=== PATIENT | female | born 1950 | race Caucasian/White ===

== ENCOUNTER 2018-04-22 21:36 | Inpatient (IN) | payer MEDICARE, OTHER ==
[~2018-04-22] VITALS: Ht 160 cm; Wt 106.5 kg
[~2018-04-22 21:36] MED LIST: ADVIL ALLERGY-1 EACH PO; AZIT250 PO; DIABETIC VITAMINS; FLUO10 PO; GEMF600 PO; GLIP5 PO; GLUC500 PO; GUAI600T33 PO; INSULANPEN SC; LEVSOD150 PO; LISI20 PO; LOVA20 PO; METF500 PO; NAPR500 PO; OMEG1CAP30 PO; OPTIFLEX-C400 MG PO; PROP60 PO; Rocephin 10001000 MG IV; SKIEMOTO TOP; TRIHYD253B PO; Triderm30 GM TP; Ventolin/Prove6.7 GM INH
[2018-04-22 22:28] LABS: BASOPHILS ABSOLUTE AUTO 0.06 K/mm3 (0.00-0.23); BASOPHILS PERCENT AUTO 0 % (0-2); EOSINOPHILS ABSOLUTE AUTO 0.03 K/mm3 (0.00-0.68); EOSINOPHILS PERCENT AUTO 0 % (0-6); Hematocrit 35.2 % (33.0-51.0); Hemoglobin 11.6 g/dL (11.5-16.0); IMMATURE GRAN ABSOLUTE AUTO 0.34 K/mm3 (0.00-0.10); IMMATURE GRAN PERCENT AUTO 2 % (0-1); LYMPHOCYTES ABSOLUTE AUTO 0.72 K/mm3 (0.84-5.20); LYMPHOCYTES PERCENT AUTO 4 % (21-46); MONOCYTES ABSOLUTE AUTO 1.06 K/mm3 (0.16-1.47); MONOCYTES PERCENT AUTO 6 % (4-13); Mean Corpuscular HGB 29.8 pg (26.0-34.0); Mean Corpuscular Volume 91 fL (80-100); NEUTROPHILS ABSOLUTE AUTO 15.27 K/mm3 (1.96-9.15); NEUTROPHILS PERCENT AUTO 87 % (41-73); RDW Coefficient Variation 12.7 % (11.7-14.2); RDW Standard Deviation 41.6 fL (35.1-46.3); Red Blood Cell Count 3.89 M/mm3 (3.80-5.20); White Blood Cell Count 17.48 K/mm3 (4.00-11.30)
[2018-04-22 22:35] LABS: Mean Platelet Volume 11.3 fL (9.1-12.4); Platelet Count 261 K/mm3 (150-400)
[2018-04-22 22:39] LABS: Albumin, Blood 2.8 g/dL (3.4-5.0); Albumin/Globulin Ratio 0.6 (0.8-1.8); Bilirubin, Total 0.6 mg/dL (0.1-1.0); Bun/Creatinine Ratio 21.8 (12.0-20.0); Calcium, Blood 8.9 mg/dL (8.5-10.1); Creatinine, Blood 1.19 mg/dL (0.40-1.00); Globulin, Blood 4.8 g/dL (2.2-4.0); Potassium, Blood 4.1 mmol/L (3.5-5.5); Total Protein, Blood 7.6 g/dL (6.4-8.2)
[2018-04-22 23:03] LABS: Source, Urine Clean Catch
[2018-04-22 23:06] LABS: Bilirubin, Urine Neg (Neg); Blood, Urine 5+ (Neg); Glucose Qualitative, Urine 4+ (Neg); Ketones, Urine Neg (Neg); Leukocyte Esterase, Urine 3+ (Neg); Nitrite, Urine Pos (Neg); Protein, Urine 3+ (Neg); Urobilinogen, Urine NORM (Normal)
[2018-04-22 23:08] LABS: Appearance, Urine Cloudy (Clear); Color, Urine Yellow (P-Yellow)
[2018-04-22 23:20] LABS: Bacteria Many /hpf; Squamous Epithelial Cells Rare /hpf (Few); White Blood Cells, Urine TNTC /hpf (0-5)
[2018-04-22 23:25] LABS: Influenza A Negative (NEGATIVE); Influenza B Negative (NEGATIVE)
[2018-04-23] MEDS ORDERED: LEVSOD50 PO (01:42)
[2018-04-23] MEDS ORDERED: PRIM250 PO (01:43)
[2018-04-23] MEDS ORDERED: METF500C PO (01:44)
[2018-04-23] MEDS ORDERED: GEMF600 PO (01:45)
[2018-04-23] MEDS ORDERED: Omeprazole20 M1 PO (01:46)
[2018-04-23] MEDS ORDERED: Inderal80 MG PO (01:47)
[2018-04-23] MEDS ORDERED: LOSA50 PO (01:48)
[2018-04-23] MEDS ORDERED: PROZAC20 MG PO (01:49)
[2018-04-23] MEDS ORDERED: LOVA40 PO (01:50)
[2018-04-23] MEDS ORDERED: MONT10T PO (01:53)
--- NOTE | 2018-04-23 01:55 | NUR ---
PT ARRIVAL. PT ARRIVED ON UNIT VIA GURNEY, PT WAS ABLE TO SELF TRANSFER FROM [place] TO BED. PT WAS ADMITTED DUE TO SEPSIS AND UTI. PT HAS BEEN WITHOUT POWER SINCE THE SNOW STORM 3-4 DAYS AGO, PT NORMALLY USES CPAP WITH SLEEP BUT HAS NOT BEEN ABLE TO THE LAST FEW DAYS DUE TO NO POWER AT HOME. TELE WAS PLACED, NSR IN THE 80'S PER OIL REFINER. PT'S BP 118/79. NO EDEMA NOTED ON ASSESSMENT. PT L/S CLEAR T/O W/ EXPIRATORY WHEEZES IN THE RIGHT UPPER AND MID LOBES. PT O2 STATS ARE >90% ON RA. BT PRESENT AND HYPOACTIVE, ABD IS SOFT AND NONTENDER TO PALP. PT HAS COMPLAINED OF N/V AND DIARRHEA THE PAST 2-3 DAYS. PT HAS NOT HAD ANY OF THESE COMPLAINTS SINCE ADMIT. CALL LIGHT IN REACH, BED IS LOCKED AND LOW WILL CONTINUE TO MONITOR.
[2018-04-23] MEDS ORDERED: BASAGLAR K100 UNIT/1 SC (01:56)
[2018-04-23 04:00] LABS: Hematocrit 31.6 % (33.0-51.0); Hemoglobin 10.4 g/dL (11.5-16.0); Mean Corpuscular HGB 29.1 pg (26.0-34.0); Mean Corpuscular HGB Conc 32.9 g/dL (31.5-36.5); Mean Corpuscular Volume 89 fL (80-100); Mean Platelet Volume 11.4 fL (9.1-12.4); Platelet Count 285 K/mm3 (150-400); RDW Coefficient Variation 12.6 % (11.7-14.2); Red Blood Cell Count 3.57 M/mm3 (3.80-5.20)
[2018-04-23 04:23] LABS: Albumin, Blood 2.4 g/dL (3.4-5.0); Albumin/Globulin Ratio 0.6 (0.8-1.8); Bilirubin, Total 0.6 mg/dL (0.1-1.0); Bun/Creatinine Ratio 21.8 (12.0-20.0); Calcium, Blood 8.2 mg/dL (8.5-10.1); Creatinine, Blood 1.19 mg/dL (0.40-1.00); Globulin, Blood 4.3 g/dL (2.2-4.0); Potassium, Blood 3.7 mmol/L (3.5-5.5); Total Protein, Blood 6.7 g/dL (6.4-8.2)
--- NOTE | 2018-04-23 06:30 | NUR ---
SHIFT SUMMARY. NO ACUTE CHANGES NOTED THIS SHIFT. PT'S VS HAVE BEEN STABLE T/O SHIFT. PT IS SBA TO THE BATHROOM. AFTER GETTING UP THIS AM PT WALKED BACK TO THE BED AND BEGAN TO SHAKE, PT STATED SHE WAS "VERY COLD AND CAN'T GET WARM." A WARM BLANKET WAS PROVIDED FOR COMFORT, PT'S BLOOD SUGAR WAS CHECKED AND IT WAS 287. PT'S BP AND TEMP WAS STABLE WELL. PT STATED THAT SHE HAS BEEN DOING THIS FOR 3-4 DAYS. CALL LIGHT IN REACH, BED IS LOCKED AND LOW WILL CONTINUE TO MONITOR UNTIL REPORT IS GIVEN TO ONCOMING RN.
[2018-04-23 13:20] LABS: Adenovirus Not Detected (NOT DETECT); Bordetella pertussis Not Detected (NOT DETECT); Chlamydophila pneumoniae Not Detected (NOT DETECT); Coronavirus 229E Not Detected (NOT DETECT); Coronavirus HKU1 Not Detected (NOT DETECT); Coronavirus NL63 Not Detected (NOT DETECT); Coronavirus OC43 Not Detected (NOT DETECT); Human Metapneumovirus Not Detected (NOT DETECT); Human Rhinovirus/Enterovirus Not Detected (NOT DETECT); Influenza A Not Detected (NOT DETECT); Influenza A/2009-H1 Not Detected (NOT DETECT); Influenza A/H1 Not Detected (NOT DETECT); Influenza A/H3 Not Detected (NOT DETECT); Influenza B Not Detected (NOT DETECT); Mycoplasma pneumoniae Not Detected (NOT DETECT); Parainfluenza Virus 1 Not Detected (NOT DETECT); Parainfluenza Virus 2 Not Detected (NOT DETECT); Parainfluenza Virus 3 Not Detected (NOT DETECT); Parainfluenza Virus 4 Not Detected (NOT DETECT); Respiratory Syncytial Virus Not Detected (NOT DETECT)
--- NOTE | 2018-04-23 17:26 | NUR ---
ARRIVED TO ROOM VIA WHEELCHAIR PATIENT TRANSFERRED SELF TO BED, TREMORS OF ARMS WHICH PER PATIENT IS NORMAL FOR HER. PATIENT DENIES PAIN OR NAUSEA. ORIENTED PATIENT TO HER ROOM ND CALL SYSTEM. PATIENT EATING DINNER AT THIS TIME
--- NOTE | 2018-04-24 06:02 | NUR ---
SHIFT SUMMARY PT A&O X4 T/O SHIFT. NO ACUTE CHANGES. DR. PURCELL AWARE BEDTIME PROPRANOLOL HELD D/T LOW BP T/O DAY. BLOOD GLUCOSE MANGED PER ORDERS AND EMAR. PT DENIED PAIN, NAUSEA AND CP T/O SHIFT. INCREASED WOB NOTED WHEN UP TO TOILET; PT STS SLIGHT SOB. RA; DENIES SOB AT REST. IV GTT PER EMAR. PT DENIES CP[facility] WITH 1 DEGREE BLOCK PER TOP CLEANER. CALL LIGHT IN REACH; PT DEMONSTRATES USE. WCTM UNTIL REPORT TO DAY SHIFT RN.
[2018-04-24 07:32] LABS: BASOPHILS ABSOLUTE AUTO 0.04 K/mm3 (0.00-0.23); BASOPHILS PERCENT AUTO 0 % (0-2); EOSINOPHILS PERCENT AUTO 1 % (0-6); Hematocrit 30.6 % (33.0-51.0); Hemoglobin 10.3 g/dL (11.5-16.0); IMMATURE GRAN ABSOLUTE AUTO 0.15 K/mm3 (0.00-0.10); IMMATURE GRAN PERCENT AUTO 2 % (0-1); LYMPHOCYTES ABSOLUTE AUTO 0.82 K/mm3 (0.84-5.20); LYMPHOCYTES PERCENT AUTO 9 % (21-46); MONOCYTES ABSOLUTE AUTO 0.96 K/mm3 (0.16-1.47); MONOCYTES PERCENT AUTO 11 % (4-13); Mean Corpuscular HGB Conc 33.7 g/dL (31.5-36.5); Mean Platelet Volume 11.4 fL (9.1-12.4); NEUTROPHILS ABSOLUTE AUTO 7.03 K/mm3 (1.96-9.15); NEUTROPHILS PERCENT AUTO 77 % (41-73); Platelet Count 227 K/mm3 (150-400); RDW Coefficient Variation 12.9 % (11.7-14.2); RDW Standard Deviation 40.8 fL (35.1-46.3); Red Blood Cell Count 3.55 M/mm3 (3.80-5.20)
[2018-04-24 07:34] LABS: Mean Corpuscular Volume 86 fL (80-100)
[2018-04-24 07:48] LABS: Anion Gap 10 mmol/L (6-16); Blood Urea Nitrogen 27 mg/dL (8-24); Bun/Creatinine Ratio 29.4 (12.0-20.0); CO2, Blood 19 mmol/L (21-32); Calcium, Blood 8.2 mg/dL (8.5-10.1); Chloride, Blood 104 mmol/L (98-108); Creatinine, Blood 0.92 mg/dL (0.40-1.00); Glomerular Filtration Rate >60 (60-); Glucose, Blood 218 mg/dL (70-99); Potassium, Blood 3.9 mmol/L (3.5-5.5); Sodium, Blood 133 mmol/L (136-145)
--- NOTE | 2018-04-24 17:28 | NUR ---
SUMMARY PATIENT DENIES PAIN OR DISCOMFORT THROUGHOUT SHIFT. PATIENT SLIGHTLY SOB WITH ACTIVITY WHICH SHE STATES IS HER BASELINE. VOIDING SLIGHTLY CLOUDY AALIYAH URINE. PATIENT IS HOPING TO DISCHARGE TOMORROW
--- NOTE | 2018-04-25 04:13 | NUR ---
SHIFT SUMMARY PT A&O X4 T/O SHIFT. NO ACUTE CHANGES. RA WHILE AWAKE. CPAP WHILE ASLEEP; CONT. OXIMETRY. PT INDEPENDENT IN ROOM. LS CLEAR; PT DENIES SOB AT REST; STS SLIGHT WHEN OOB. INCREASED WOB WITH ACTIVITY NOTED; PT ABLE TO CONVERSE IN FULL SENTENCES. PAIN MANAGED PER EMAR. CALL LIGHT IN REACH; PT DEMONSTRATES USE. WCTM UNTIL REPORT TO DAY SHIFT RN.
[2018-04-25 05:39] LABS: BASOPHILS ABSOLUTE AUTO 0.06 K/mm3 (0.00-0.23); BASOPHILS PERCENT AUTO 1 % (0-2); EOSINOPHILS ABSOLUTE AUTO 0.24 K/mm3 (0.00-0.68); EOSINOPHILS PERCENT AUTO 3 % (0-6); Hematocrit 32.6 % (33.0-51.0); Hemoglobin 10.7 g/dL (11.5-16.0); IMMATURE GRAN ABSOLUTE AUTO 0.31 K/mm3 (0.00-0.10); IMMATURE GRAN PERCENT AUTO 3 % (0-1); LYMPHOCYTES ABSOLUTE AUTO 1.29 K/mm3 (0.84-5.20); LYMPHOCYTES PERCENT AUTO 14 % (21-46); MONOCYTES ABSOLUTE AUTO 1.23 K/mm3 (0.16-1.47); MONOCYTES PERCENT AUTO 13 % (4-13); Mean Corpuscular HGB 29.2 pg (26.0-34.0); Mean Corpuscular HGB Conc 32.8 g/dL (31.5-36.5); Mean Platelet Volume 11.1 fL (9.1-12.4); NEUTROPHILS ABSOLUTE AUTO 6.27 K/mm3 (1.96-9.15); NEUTROPHILS PERCENT AUTO 67 % (41-73); Platelet Count 279 K/mm3 (150-400); RDW Coefficient Variation 13.2 % (11.7-14.2); RDW Standard Deviation 43.4 fL (35.1-46.3); Red Blood Cell Count 3.67 M/mm3 (3.80-5.20)
[2018-04-25 05:44] LABS: Mean Corpuscular Volume 89 fL (80-100)
[2018-04-25 06:00] LABS: Anion Gap 8 mmol/L (6-16); Blood Urea Nitrogen 21 mg/dL (8-24); Bun/Creatinine Ratio 28.6 (12.0-20.0); CO2, Blood 24 mmol/L (21-32); Calcium, Blood 8.7 mg/dL (8.5-10.1); Chloride, Blood 105 mmol/L (98-108); Creatinine, Blood 0.74 mg/dL (0.40-1.00); Glomerular Filtration Rate >60 (60-); Glucose, Blood 136 mg/dL (70-99); Potassium, Blood 3.9 mmol/L (3.5-5.5); Sodium, Blood 137 mmol/L (136-145)
[2018-04-25] MEDS ORDERED: LEVO750 PO (11:36)
--- NOTE | 2018-04-25 13:35 | NUR ---
DIACHARGE: PT DC TO HOME AT THIS TIME WITH FAMILY. IV DC'D WNL. PT HOME MED RETURNED TO HER. VERBALIZED UNDERSTANDING OF DC INSTRUCTIONS, FOLLOW UP, PROBLEMS TO REPORT AND MEDICATIONS. SCRIPT GIVEN. PT LEFT VIA WHEELCHAIR TO CAR WITH BELONGINGS.
== END 2018-04-25 13:35 | disposition home or self-care (01) | DRG 872 ==
LOC: ER 21:36 → PCU 04-23 00:24 → SURS 04-23 17:17
PROVIDERS: Emergency Medicine; Hospitalist; ADMIT Internal Medicine
DX: A41.51 Sepsis due to Escherichia coli [E. coli] (principal); N39.0 Urinary tract infection, site not specified; E87.1 Hypo-osmolality and hyponatremia; E11.65 Type 2 diabetes mellitus with hyperglycemia; E11.22 Type 2 diabetes mellitus with diabetic chronic kidney disease; E03.9 Hypothyroidism, unspecified; I12.9 Hypertensive chronic kidney disease with stage 1 through stage 4 chronic kidney disease, or unspecified chronic kidney disease; N18.3 Chronic kidney disease, stage 3 (moderate); D63.1 Anemia in chronic kidney disease; E86.0 Dehydration; E78.5 Hyperlipidemia, unspecified; K52.9 Noninfective gastroenteritis and colitis, unspecified; Z79.84 Long term (current) use of oral hypoglycemic drugs; Z79.899 Other long term (current) drug therapy
CPT/HCPCS: 36415; 80048; 80053; 81001; 82947; 83605; 85025; 85027; 87040; 87077; 87086; 87186; 87486; 87581; 87633; 87798; 87804; 90686; 94660; 94762; 96361; 96374; 96375; 99285-25; J0696; J1650; J2405; J7030

== ENCOUNTER → 2018-05-20 | Outpatient (CLI) | payer MEDICARE, OTHER ==
[~2018-05-20] MED LIST changes: +BASAGLAR K100 UNIT/1 SC; +Inderal80 MG PO; +LEVO750 PO; +LEVSOD50 PO; +LOSA50 PO; +LOVA40 PO; +METF500C PO; +MONT10T PO; +Omeprazole20 M1 PO; +PRIM250 PO; +PROZAC20 MG PO
== END | disposition home or self-care (01) ==
LOC: LAB SHORT 18:16 → LAB 18:16
DX: G62.9 Polyneuropathy, unspecified (principal)
CPT/HCPCS: 82607

== ENCOUNTER → 2018-07-15 | Outpatient (CLI) | payer MEDICARE | END | disposition home or self-care (01) | LOC: LAB SHORT 13:39 → LAB 13:39 | DX: N39.0 Urinary tract infection, site not specified (principal) | CPT/HCPCS: 87077; 87086; 87186 ==

== ENCOUNTER → 2018-11-04 | Outpatient (CLI) | payer MEDICARE, OTHER ==
[2018-11-04 19:52] LABS: Free Thyroxine 1.13 ng/dL (0.70-1.60); Thyroid Stimulating Hormone 0.18 uIU/mL (0.360-4.800)
== END | disposition home or self-care (01) ==
LOC: LAB 16:22 → LAB SHORT 16:22
PROVIDERS: Hospitalist
DX: E03.9 Hypothyroidism, unspecified (principal)
CPT/HCPCS: 84439; 84443

== ENCOUNTER → 2019-01-05 | Outpatient (CLI) | payer MEDICARE, OTHER ==
[~2019-01-05] MED LIST changes: +BASAGLAR SC; +BENADRYL25 MG PO; +DIABETIC VITAMINS PO; +FOCUS FACTOR PO; +NAPR220 PO; +SUPER C PO
== END | disposition home or self-care (01) ==
LOC: LAB SHORT 16:13 → LAB 16:13
DX: N39.0 Urinary tract infection, site not specified (principal)
CPT/HCPCS: 87077; 87086; 87186

== ENCOUNTER 2019-01-17 09:26 | Day surgery (SDC) | payer MEDICARE, OTHER ==
[~2019-01-17] VITALS: Ht 160 cm; Wt 102.0 kg
--- NOTE | 2019-01-17 10:26 | NUR ---
Ambulatory in Day Surgery. Surgical site prepped with 2% Chlorhexidine cloth wipe. History, Chart, Medications and Allergies reviewed before start of procedure. Lungs clear T/O to Auscultation. Patient confirms NPO status and agrees with scheduled surgery. Pre-Op teaching done. Pt verbalizes understanding. Patient reports completing Chlorhexadine shower X2 prior to admission to hospital.
--- NOTE | 2019-01-17 15:52 | NUR ---
POST OP: REPORT RECEIVED FROM CRYSTAL GROWER. PT TO UNIT AT 1405. UPON ASSESSMENT, NO VISABLE DISTRESS, VSS, A/O. SURGICAL SITE WNL. WILL CTM
--- NOTE | 2019-01-17 18:20 | NUR ---
SUMMARY: NO ACUTE CHANGE SINCE POST OP. VSS, A/O. UP EASILY, ABLE TO MOVE LEG, DENIES N/T. VOIDED IN COMMODE. DENIES PAIN CURRENTLY. TXA GIVEN. DENIES NAUSEA. SURGICAL SITE WNL. NO SAFETY CONCERNS AT THIS TIME.
--- NOTE | 2019-01-18 04:35 | NUR ---
Pt A&O x4. VSS. Pain controlled with medications. Ambulating in hallway. Voiding. Tolerating PO. CMS to RLE intact. Dressing DCI. Polar Ice on.
[2019-01-18 05:02] LABS: BASOPHILS ABSOLUTE AUTO 0.06 K/mm3 (0.00-0.23); BASOPHILS PERCENT AUTO 0 % (0-2); EOSINOPHILS ABSOLUTE AUTO 0.19 K/mm3 (0.00-0.68); EOSINOPHILS PERCENT AUTO 1 % (0-6); Hematocrit 31.1 % (33.0-51.0); Hemoglobin 10.4 g/dL (11.5-16.0); IMMATURE GRAN ABSOLUTE AUTO 0.08 K/mm3 (0.00-0.10); IMMATURE GRAN PERCENT AUTO 1 % (0-1); LYMPHOCYTES ABSOLUTE AUTO 3.02 K/mm3 (0.84-5.20); LYMPHOCYTES PERCENT AUTO 22 % (21-46); MONOCYTES ABSOLUTE AUTO 1.11 K/mm3 (0.16-1.47); MONOCYTES PERCENT AUTO 8 % (4-13); Mean Corpuscular HGB 29.6 pg (26.0-34.0); Mean Corpuscular HGB Conc 33.4 g/dL (31.5-36.5); Mean Corpuscular Volume 89 fL (80-100); Mean Platelet Volume 10.9 fL (9.1-12.4); NEUTROPHILS ABSOLUTE AUTO 9.38 K/mm3 (1.96-9.15); NEUTROPHILS PERCENT AUTO 68 % (41-73); NRBC ABSOLUTE 0.02 K/mm3 (0.00-0.02); NRBC Auto 0.1 /100 WBC (0.0-0.2); Platelet Count 283 K/mm3 (150-400); RDW Standard Deviation 42.2 fL (35.1-46.3); Red Blood Cell Count 3.51 M/mm3 (3.80-5.20); White Blood Cell Count 13.84 K/mm3 (4.00-11.30)
[2019-01-18 05:23] LABS: Anion Gap 7 mmol/L (6-16); Blood Urea Nitrogen 19 mg/dL (8-24); Bun/Creatinine Ratio 27.9 (12.0-20.0); CO2, Blood 29 mmol/L (21-32); Calcium, Blood 8.5 mg/dL (8.5-10.1); Chloride, Blood 106 mmol/L (98-108); Creatinine, Blood 0.68 mg/dL (0.40-1.00); Glomerular Filtration Rate >60 (60-); Glucose, Blood 146 mg/dL (70-99); Magnesium, Blood 1.7 mg/dL (1.6-2.4); Potassium, Blood 3.4 mmol/L (3.5-5.5); Sodium, Blood 142 mmol/L (136-145)
[2019-01-18] MEDS ORDERED: OXYC5 PO (11:23)
[2019-01-18] MEDS ORDERED: ACET500 PO (11:24)
[2019-01-18] MEDS ORDERED: ASPI81CH PO (11:24)
--- NOTE | 2019-01-18 15:53 | NUR ---
DISCHARGE: PACKET PRINTED AND PT EDUCATED. SCRIPT SENT WITH PT. PT LEFT UNIT VIA WHEELCHAIR WITH LYDIA WEBSTER AT APPROX 1230
== END 2019-01-18 12:30 | disposition home or self-care (01) ==
LOC: ORSCMMR 09:26 → ORD 11:00 → ORSCMMR 11:30 → ORD 11:30 → SURS 14:16 → ORSCMMR 01-18 12:30
PROVIDERS: Orthopaedic Surgery
PROC: 0SRC0J9 Replacement of Right Knee Joint with Synthetic Substitute, Cemented, Open Approach (ICD-10-PCS; principal; 2019-01-17 11:30)
DX: M17.11 Unilateral primary osteoarthritis, right knee (principal); I10 Essential (primary) hypertension; E11.9 Type 2 diabetes mellitus without complications; E03.9 Hypothyroidism, unspecified; E66.01 Morbid (severe) obesity due to excess calories; Z68.39 Body mass index [BMI] 39.0-39.9, adult; E78.5 Hyperlipidemia, unspecified; J45.909 Unspecified asthma, uncomplicated; Z79.899 Other long term (current) drug therapy; Z79.84 Long term (current) use of oral hypoglycemic drugs; Z23 Encounter for immunization
CPT/HCPCS: 36415; 73560-RT; 80048; 82947; 83735; 85025; 88300; 90686; 97110; 97116; 97162; 97530; C1713; C1776; G0008; J0171; J0690; J0735; J1100; J1815; J1885; J2370; J2405; J2704; J2795; J3010; J7120; Q0163

== ENCOUNTER → 2020-01-04 | Outpatient (CLI) | payer MEDICARE, OTHER ==
[~2020-01-04] MED LIST changes: +ACET500 PO; +ASPI81CH PO; +OXYC5 PO
[2020-01-04 19:42] LABS: Percent Saturation 33.2 % (15.0-50.0)
== END ==
LOC: LAB 17:27 → LAB SHORT 17:27
PROVIDERS: Hospitalist
DX: D50.9 Iron deficiency anemia, unspecified (principal)
CPT/HCPCS: 82728; 83540; 83550

== ENCOUNTER → 2020-03-21 | Outpatient (CLI) | payer MEDICARE, OTHER ==
[2020-03-21 18:50] LABS: BASOPHILS ABSOLUTE AUTO 0.11 K/mm3 (0.00-0.23); BASOPHILS PERCENT AUTO 1 % (0-2); EOSINOPHILS ABSOLUTE AUTO 0.43 K/mm3 (0.00-0.68); EOSINOPHILS PERCENT AUTO 5 % (0-6); Hematocrit 38.9 % (33.0-51.0); Hemoglobin 12.8 g/dL (11.5-16.0); IMMATURE GRAN ABSOLUTE AUTO 0.12 K/mm3 (0.00-0.10); IMMATURE GRAN PERCENT AUTO 1 % (0-1); LYMPHOCYTES ABSOLUTE AUTO 2.95 K/mm3 (0.84-5.20); LYMPHOCYTES PERCENT AUTO 31 % (21-46); MONOCYTES ABSOLUTE AUTO 0.76 K/mm3 (0.16-1.47); MONOCYTES PERCENT AUTO 8 % (4-13); Mean Corpuscular HGB 29.2 pg (26.0-34.0); Mean Corpuscular HGB Conc 32.9 g/dL (31.5-36.5); Mean Corpuscular Volume 89 fL (80-100); NEUTROPHILS ABSOLUTE AUTO 5.24 K/mm3 (1.96-9.15); NEUTROPHILS PERCENT AUTO 55 % (41-73); Platelet Count 302 K/mm3 (150-400); RDW Coefficient Variation 12.5 % (11.7-14.2); RDW Standard Deviation 40.7 fL (35.1-46.3); Red Blood Cell Count 4.38 M/mm3 (3.80-5.20); White Blood Cell Count 9.61 K/mm3 (4.00-11.30)
[2020-03-21 20:09] LABS: Free Thyroxine 1.08 ng/dL (0.70-1.60)
[2020-03-21 20:13] LABS: Thyroid Stimulating Hormone 1.6 uIU/mL (0.360-4.800)
== END | disposition home or self-care (01) ==
LOC: LAB SHORT 16:30 → LAB 16:30
PROVIDERS: Hospitalist
DX: E03.9 Hypothyroidism, unspecified (principal); E11.65 Type 2 diabetes mellitus with hyperglycemia; R06.02 Shortness of breath
CPT/HCPCS: 83036; 84439; 84443; 85025

== ENCOUNTER → 2020-10-23 | Outpatient (CLI) | payer MEDICARE, OTHER | LOC: LAB SHORT 11:45 → LAB 11:45 | DX: R30.0 Dysuria (principal); Z88.2 Allergy status to sulfonamides | CPT/HCPCS: 87086 ==

== ENCOUNTER → 2020-12-04 | Outpatient (CLI) | payer MEDICARE, OTHER | END | disposition home or self-care (01) | LOC: LAB SHORT 15:00 | DX: R30.0 Dysuria (principal) | CPT/HCPCS: 87077; 87086; 87186 ==

== ENCOUNTER → 2021-04-01 | Outpatient (CLI) | payer MEDICARE, OTHER ==
[2021-04-01 19:39] LABS: Free Thyroxine 0.98 ng/dL (0.70-1.60)
[2021-04-01 19:42] LABS: Thyroid Stimulating Hormone 2.34 uIU/mL (0.360-4.800)
== END | disposition home or self-care (01) ==
LOC: LAB SHORT 17:00
PROVIDERS: Hospitalist
DX: E03.9 Hypothyroidism, unspecified (principal)
CPT/HCPCS: 84439; 84443; 84481

== ENCOUNTER → 2021-09-25 | Outpatient (CLI) | payer MEDICARE, OTHER | END | disposition home or self-care (01) | LOC: LAB SHORT 12:10 | DX: E11.65 Type 2 diabetes mellitus with hyperglycemia (principal) | CPT/HCPCS: 82043 ==

== ENCOUNTER → 2021-12-25 | Outpatient (CLI) | payer MEDICARE ==
[2021-12-27 16:25] LABS: Adenovirus F 40/41 Not Detected (NOT DETECT); Astrovirus Not Detected (NOT DETECT); Campylobacter Sp Not Detected (NOT DETECT); Cryptosporidium Not Detected (NOT DETECT); Cyclospora Cayetanensis Not Detected (NOT DETECT); E. Coli O157 Not Detected (NOT DETECT); Entamoeba Histolytica Not Detected (NOT DETECT); Enteroaggregative E. coli-EAEC Not Detected (NOT DETECT); Enteropathogenic E. coli-EPEC Not Detected (NOT DETECT); Enterotoxigenic E. coli-ETEC Not Detected (NOT DETECT); Giardia Lamblia Not Detected (NOT DETECT); Norovirus GI/GII Detected (NOT DETECT); Plesiomonas Shigelloides Not Detected (NOT DETECT); Rotavirus A Not Detected (NOT DETECT); Salmonella Sp Not Detected (NOT DETECT); Sapovirus Not Detected (NOT DETECT); Shiga Toxin-prod E. coli-STEC Not Detected (NOT DETECT); Shigella/Enteroin E. coli-EIEC Not Detected (NOT DETECT); Vibrio Cholerae Not Detected (NOT DETECT); Vibrio Sp Not Detected (NOT DETECT); Yersinia Enterocolitica Not Detected (NOT DETECT)
== END | disposition home or self-care (01) ==
LOC: LAB 12:22 → LAB SHORT 12:22
PROVIDERS: Hospitalist
DX: R19.7 Diarrhea, unspecified (principal)
CPT/HCPCS: 87507

== ENCOUNTER → 2023-01-14 | Outpatient (CLI) | payer MEDICARE | END | disposition home or self-care (01) | LOC: LAB SHORT 12:00 → LAB 12:00 | DX: N30.01 Acute cystitis with hematuria (principal) | CPT/HCPCS: 87077; 87086; 87186 ==

== ENCOUNTER 2023-10-12 12:04 | Day surgery (SDC) | payer MEDICARE, OTHER ==
[~2023-10-12] VITALS: Ht 160 cm; Wt 101.1 kg
[~2023-10-12 12:04] MED LIST changes: +Lactated Ringer's 1,000 ML IV ONE
[2023-10-12] MEDS ORDERED: NS 100 ML IV ONE (12:11)
[2023-10-12] MEDS ORDERED: CeFAZolin Sodium 2,000 MG VIAL ONE (12:11)
[2023-10-12] MEDS ORDERED: Lactated Ringer's 1,000 ML IV ONE (12:17)
[2023-10-12] MEDS ORDERED: NOVOLIN 70100 UNIT/4 SQ (12:19)
[2023-10-12] MEDS ORDERED: BASAGLAR K100 UNIT/1 SC (12:20)
[2023-10-12] MEDS ORDERED: LIOT25 PO (12:21)
[2023-10-12] MEDS ORDERED: GLYXAMBI 10 MG1 EACH PO (12:21)
[2023-10-12] MEDS ORDERED: propofoL 20 ML IV ONE (12:42)
--- NOTE | 2023-10-12 12:44 | NUR ---
10/12/23 1244 Coco Lazo TIME OUT PERFORMED AT BEDSIDE WITH DR UMANA IN PREOP PRIOR TO DR UMANA INJECTING 9ML 1% LIDOCAINE WITH EPI 1:[id number] AND 1ML 8.4% SODIUM BICARBONATE.
[2023-10-12 13:08] VITALS: BP 129/74
== END 2023-10-12 13:31 | disposition home or self-care (01) ==
LOC: ORSCSDS 12:04
PROVIDERS: Orthopaedic Surgery
PROC: 01N54ZZ Release Median Nerve, Percutaneous Endoscopic Approach (ICD-10-PCS; 2023-10-12)
PROC: 0LN70ZZ Release Right Hand Tendon, Open Approach (ICD-10-PCS; principal; 2023-10-12 13:15)
DX: G56.01 Carpal tunnel syndrome, right upper limb (principal); G47.33 Obstructive sleep apnea (adult) (pediatric); I10 Essential (primary) hypertension; E11.9 Type 2 diabetes mellitus without complications; K21.9 Gastro-esophageal reflux disease without esophagitis; J45.909 Unspecified asthma, uncomplicated; Z79.4 Long term (current) use of insulin; Z79.899 Other long term (current) drug therapy
CPT/HCPCS: 82947; J0690; J2704; J7120

== ENCOUNTER → 2023-11-12 | Outpatient (CLI) | payer MEDICARE, OTHER ==
[~2023-11-12] MED LIST changes: +GLYXAMBI 10 MG1 EACH PO; +LIOT25 PO; -Lactated Ringer's 1,000 ML IV ONE; +NOVOLIN 70100 UNIT/4 SQ
== END ==
LOC: LAB SHORT 17:12 → LAB 17:12
DX: E11.69 Type 2 diabetes mellitus with other specified complication (principal)
CPT/HCPCS: 83036

== ENCOUNTER 2024-08-01 11:41 | Day surgery (SDC) | payer MEDICARE, OTHER ==
[~2024-08-01] VITALS: Ht 160 cm; Wt 101.6 kg
[~2024-08-01 11:41] MED LIST changes: +Lactated Ringer's 1,000 ML IV ONE; +Lidocaine HCl 2% 10 ML SDA ONE
[2024-08-01] MEDS ORDERED: CeFAZolin Sodium 2,000 MG VIAL ONE (12:06)
[2024-08-01] MEDS ORDERED: BASAGLAR K100 UNIT/8 (12:23)
[2024-08-01] MEDS ORDERED: propofoL 50 ML IV ONE (12:35)
[2024-08-01] MEDS ORDERED: Lactated Ringer's 1,000 ML IV ONE (12:36)
[2024-08-01] MEDS ORDERED: FentaNYL Citrate 50 MCG/ML 2 ML Injection ONE (12:45)
[2024-08-01] MEDS ORDERED: Ondansetron HCl 2 MG / ML 2ML Vial ONE (12:51)
[2024-08-01] MEDS ORDERED: Dexamethasone Sod Phos 10 MG/ML 1ML VIAL ONE (12:51)
[2024-08-01] MEDS ORDERED: Ketorolac Tromethamine 30mg Vial ONE (13:14)
[2024-08-01 13:34] VITALS: BP 127/70
--- NOTE | 2024-08-01 14:47 | NUR ---
08/01/24 1447 Jose Guadalupe Calderon PT DID NOT HAVE INSTRUCTION PACKET AT TIME OF D/C. PT CALLED AND STATED SHE WOULD RETURN TO HOSE STRIPPER PACKET. PACKET LEFT AT DIRECTOR OPERATING. PT STATES SDU VITALS CLOSER TO BASELINE THAN PRE-OP VITALS.
== END 2024-08-01 14:13 | disposition home or self-care (01) ==
LOC: ORSCSDS 11:41
PROVIDERS: Orthopaedic Surgery
PROC: 01N40ZZ Release Ulnar Nerve, Open Approach (ICD-10-PCS; principal; 2024-08-01 13:20)
DX: G56.22 Lesion of ulnar nerve, left upper limb (principal); I10 Essential (primary) hypertension; G47.33 Obstructive sleep apnea (adult) (pediatric); J45.909 Unspecified asthma, uncomplicated; E11.9 Type 2 diabetes mellitus without complications; F41.9 Anxiety disorder, unspecified; Z79.4 Long term (current) use of insulin; Z79.899 Other long term (current) drug therapy
CPT/HCPCS: 82947; J0690; J1100; J1885; J2003; J2405; J2704; J3010; J7120

== ENCOUNTER 2024-09-01 07:37 | Day surgery (SDC) | payer MEDICARE, OTHER ==
[~2024-09-01] VITALS: Ht 160 cm; Wt 103.5 kg
[~2024-09-01 07:37] MED LIST changes: +BASAGLAR K100 UNIT/8; +Balanced Salt Epinephrine Irrigation Solution 500 mL IR SCH; -Lactated Ringer's 1,000 ML IV ONE; -Lidocaine HCl 2% 10 ML SDA ONE; +Moxifloxacin HCL 0.5 MG/0.1 ML 0.4MLSYR RIGHTEYE SCH; +Ondansetron 4 MG SoluTab MM PRN; +PHENYLEPHRINE\\TROPICAMIDE\\TETRACAINE OPHTHALMIC DILATING SOLN RIGHTEYE PRN; +Povidone-Iodine 450 DROP/30 ML Solution ONE; +Povidone-Iodine 450 DROP/30 ML Solution RIGHTEYE SCH; +Tetracaine HCl/Pf 0.5% Opth Soln 4 ml ONE; +Triamcinolone Inj Susp 40 MG / ML 1ML Vial INJ SCH; +Triamcinolone Inj Susp 40 MG / ML 1ML Vial ONE
--- NOTE | 2024-09-01 08:17 | NUR ---
09/01/24 0817 CHRISTINA HOLMAN PT STATES ANXIETY LEVEL IN PREOP IS 1/10 BEFORE 10MG PO VALIUM. PT IS ON CONTINUOUS PULSE OX MONITORING. CALL LIGHT IN HAND.
--- NOTE | 2024-09-01 08:51 | NUR ---
09/01/24 0851 Joy Reyna VITALS AT 0851 BP: 134/67 P: 61 O2: 97% WITH 10 LITERS OF BLOW BY OXYGEN
[2024-09-01 09:08] VITALS: BP 118/72
--- NOTE | 2024-09-01 09:13 | NUR ---
09/01/24 0913 Martha Espinosa DAUGHTER BROUGHT TO BEDSIDE
== END 2024-09-01 09:25 | disposition home or self-care (01) ==
LOC: ORSCSDS 07:37
PROVIDERS: Ophthalmology
PROC: 08RJ3JZ Replacement of Right Lens with Synthetic Substitute, Percutaneous Approach (ICD-10-PCS; principal; 2024-09-01 09:00)
DX: E11.36 Type 2 diabetes mellitus with diabetic cataract (principal); H25.813 Combined forms of age-related cataract, bilateral; E78.5 Hyperlipidemia, unspecified; H43.813 Vitreous degeneration, bilateral; I10 Essential (primary) hypertension; H04.123 Dry eye syndrome of bilateral lacrimal glands; F41.9 Anxiety disorder, unspecified; F32.A Depression, unspecified; Z79.4 Long term (current) use of insulin; Z79.899 Other long term (current) drug therapy
CPT/HCPCS: A9270; J3301; V2632

== ENCOUNTER 2024-09-08 07:24 | Day surgery (SDC) | payer MEDICARE, OTHER ==
[~2024-09-08] VITALS: Ht 160 cm; Wt 102.4 kg
[~2024-09-08 07:24] MED LIST changes: +Moxifloxacin HCL 0.5 MG/0.1 ML 0.4MLSYR LEFTEYE SCH; -Moxifloxacin HCL 0.5 MG/0.1 ML 0.4MLSYR RIGHTEYE SCH; +PHENYLEPHRINE\\TROPICAMIDE\\TETRACAINE OPHTHALMIC DILATING SOLN LEFTEYE PRN; -PHENYLEPHRINE\\TROPICAMIDE\\TETRACAINE OPHTHALMIC DILATING SOLN RIGHTEYE PRN; +Povidone-Iodine 450 DROP/30 ML Solution LEFTEYE SCH; -Povidone-Iodine 450 DROP/30 ML Solution RIGHTEYE SCH
--- NOTE | 2024-09-08 08:16 | NUR ---
09/08/24 0816 Jessica Leger 0810: INITIAL ANXIETY 0813: 10 MG PO VALIUM GIVEN BY LEXIRN PER ORDERS. PULSE OX ON FINGER, CALL LIGHT IN HAND.
[2024-09-08] MEDS ORDERED: VITAMIN C (08:24)
[2024-09-08] MEDS ORDERED: GLUCOSAMINE (08:24)
[2024-09-08] MEDS ORDERED: Tetracaine HCl 0.5% Opth Soln 15 ml LEFTEYE ONE (08:58)
--- NOTE | 2024-09-08 09:04 | NUR ---
09/08/24 0904 Galileo Sosa N 135/65 61 97% 10L BLOW BY O2 18
[2024-09-08 09:16] VITALS: BP 139/68
--- NOTE | 2024-09-08 09:24 | NUR ---
09/08/24 0924 Pérez Walker PT DENIES PAIN AND NAUSEA AT THIS TIME. PT AGREEABLE TO D/C HOME.
== END 2024-09-08 09:27 | disposition home or self-care (01) ==
LOC: ORSCSDS 07:24
PROVIDERS: Ophthalmology
PROC: 08RK3JZ Replacement of Left Lens with Synthetic Substitute, Percutaneous Approach (ICD-10-PCS; principal; 2024-09-08 09:00)
DX: E11.36 Type 2 diabetes mellitus with diabetic cataract (principal); H25.812 Combined forms of age-related cataract, left eye; Z96.1 Presence of intraocular lens; H04.123 Dry eye syndrome of bilateral lacrimal glands; H43.813 Vitreous degeneration, bilateral; F41.9 Anxiety disorder, unspecified; F32.A Depression, unspecified; E78.5 Hyperlipidemia, unspecified; I10 Essential (primary) hypertension; G47.30 Sleep apnea, unspecified; Z79.4 Long term (current) use of insulin; Z79.899 Other long term (current) drug therapy
CPT/HCPCS: A9270; J2003; J3301; V2632

== ENCOUNTER → 2024-10-10 | Outpatient (CLI) | payer MEDICARE, OTHER ==
[~2024-10-10] MED LIST changes: -Balanced Salt Epinephrine Irrigation Solution 500 mL IR SCH; +GLUCOSAMINE; -Moxifloxacin HCL 0.5 MG/0.1 ML 0.4MLSYR LEFTEYE SCH; -Ondansetron 4 MG SoluTab MM PRN; -PHENYLEPHRINE\\TROPICAMIDE\\TETRACAINE OPHTHALMIC DILATING SOLN LEFTEYE PRN; -Povidone-Iodine 450 DROP/30 ML Solution LEFTEYE SCH; -Povidone-Iodine 450 DROP/30 ML Solution ONE; -Tetracaine HCl/Pf 0.5% Opth Soln 4 ml ONE; -Triamcinolone Inj Susp 40 MG / ML 1ML Vial INJ SCH; -Triamcinolone Inj Susp 40 MG / ML 1ML Vial ONE; +VITAMIN C
[2024-10-10 16:36] LABS: Creatinine, Urine Random 94.5 mg/dL (27.00-270.00); Microalb/Creat Ratio UR, Rand 338.624 mg/g (0.000-30.000); Microalbumin, Random Urine 320.0 mg/L (0.000-20.000)
[2024-10-10 16:56] LABS: CHOL/HDL RATIO 2.8; Cholesterol 180 mg/dL (50-200); HDL Cholesterol 64 mg/dL (>39); LDL/HDL RATIO 1.3; Low Density Lipoprotein Chol 82 mg/dL (0-110); Thyroid Stimulating Hormone 0.010 uIU/mL (0.360-4.800); Triglycerides 168 mg/dL (30-160); Very Low Density Lipoprot Chol 33 mg/dL (6-32)
== END | disposition home or self-care (01) ==
LOC: LAB 12:00 → LAB SHORT 12:00
PROVIDERS: Hospitalist
DX: E11.69 Type 2 diabetes mellitus with other specified complication (principal); E03.9 Hypothyroidism, unspecified; E78.5 Hyperlipidemia, unspecified
CPT/HCPCS: 80061; 82043; 82570; 84439; 84443

== ENCOUNTER → 2024-10-10 | Outpatient (CLI) | payer MEDICARE, OTHER | END | disposition home or self-care (01) | LOC: LAB SHORT 12:10 → LAB 12:10 | DX: N30.01 Acute cystitis with hematuria (principal); E11.69 Type 2 diabetes mellitus with other specified complication; E03.9 Hypothyroidism, unspecified; E78.5 Hyperlipidemia, unspecified | CPT/HCPCS: 80061; 82043; 82570; 84439; 84443; 87077; 87086; 87106; 87186 ==

== ENCOUNTER 2025-01-05 00:14 | Day surgery (SDC) | payer MEDICARE, OTHER ==
[2025-01-05] MEDS ORDERED: Lidocaine HCl 4% Cream 5 GM ONE (07:42)
== END 2025-01-05 23:00 | disposition home or self-care (01) ==
LOC: WOUND 00:14
DX: T81.31XA Disruption of external operation (surgical) wound, not elsewhere classified, initial encounter (principal); I10 Essential (primary) hypertension; E11.9 Type 2 diabetes mellitus without complications
CPT/HCPCS: A6213; A9270; G0463

== ENCOUNTER 2025-01-16 00:38 | Day surgery (SDC) | payer MEDICARE, OTHER ==
[2025-01-16] MEDS ORDERED: Lidocaine HCl 4% Cream 5 GM ONE (11:21)
== END 2025-01-16 23:00 | disposition home or self-care (01) ==
LOC: WOUND 00:38
DX: T81.31XA Disruption of external operation (surgical) wound, not elsewhere classified, initial encounter (principal); M48.062 Spinal stenosis, lumbar region with neurogenic claudication
CPT/HCPCS: A6213; A9270

== ENCOUNTER 2025-01-23 07:39 | Day surgery (SDC) | payer MEDICARE, OTHER | END 2025-01-23 23:15 | disposition home or self-care (01) | LOC: WOUND 07:39 | DX: T81.31XA Disruption of external operation (surgical) wound, not elsewhere classified, initial encounter (principal); M48.062 Spinal stenosis, lumbar region with neurogenic claudication; I10 Essential (primary) hypertension; E11.9 Type 2 diabetes mellitus without complications | CPT/HCPCS: A6213 ==

== ENCOUNTER 2025-01-30 02:48 | Day surgery (SDC) | payer MEDICARE, OTHER ==
[2025-01-30] MEDS ORDERED: Lidocaine HCl 4% Cream 5 GM ONE (15:33)
== END 2025-01-30 23:56 | disposition home or self-care (01) ==
LOC: WOUND 02:48
DX: T81.31XA Disruption of external operation (surgical) wound, not elsewhere classified, initial encounter (principal); M48.062 Spinal stenosis, lumbar region with neurogenic claudication; I10 Essential (primary) hypertension; E11.9 Type 2 diabetes mellitus without complications
CPT/HCPCS: A6213; A9270

== ENCOUNTER 2025-02-06 00:27 | Day surgery (SDC) | payer MEDICARE, OTHER ==
[2025-02-06] MEDS ORDERED: Lidocaine HCl 4% Cream 5 GM ONE (15:40)
== END 2025-02-06 23:00 | disposition home or self-care (01) ==
LOC: WOUND 00:27
DX: T81.31XA Disruption of external operation (surgical) wound, not elsewhere classified, initial encounter (principal); E11.9 Type 2 diabetes mellitus without complications; I10 Essential (primary) hypertension
CPT/HCPCS: A6213; A9270

== ENCOUNTER → 2025-02-20 | Day surgery (SDC) | payer MEDICARE, OTHER ==
[~2025-02-20] MED LIST changes: +Lidocaine HCl 4% Cream 5 GM ONE
== END ==
LOC: WOUND 15:23
DX: T81.31XD Disruption of external operation (surgical) wound, not elsewhere classified, subsequent encounter (principal); M48.062 Spinal stenosis, lumbar region with neurogenic claudication; I10 Essential (primary) hypertension; E11.9 Type 2 diabetes mellitus without complications
CPT/HCPCS: A6213; A9270; G0463